=== PATIENT | male | born 1960 ===

== ENCOUNTER 2019-02-22 15:28 | Inpatient (IN) | payer MEDICAID ==
[~2019-02-22] VITALS: Ht 180.3 cm; Wt 98.1 kg
[2019-02-23] MEDS ORDERED: NICOTINE POLACRILEX 2 MG LOZENGE BC PRN (14:50)
[2019-02-23] MEDS ORDERED: magnesium hydroxide 30ml (MOM) UD suspension PO PRN (14:50)
[2019-02-23] MEDS ORDERED: loperamide 2mg capsule PO PRN (14:50)
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
[2019-02-23] MEDS ORDERED: FLU VACC QS 2019-20 (6 MOS UP) 60 MCG/0.5 ML VIAL IMVAC ONE (16:55)
[2019-02-23 18:28] VITALS: BP 132/72
[2019-02-23] MEDS ORDERED: LEVO125T PO (18:55)
[2019-02-23] MEDS ORDERED: CLON-527 PO (18:55)
[2019-02-23] MEDS ORDERED: CLON2TAB PO (18:55)
[2019-02-23] MEDS ORDERED: QUET300T2 PO (18:55)
[2019-02-23] MEDS ORDERED: MULT-16 PO (18:55)
[2019-02-23] MEDS ORDERED: ATOR10TA PO (18:55)
[2019-02-23] MEDS ORDERED: CALC-331 PO (18:55)
[2019-02-23] MEDS ORDERED: OXYB5TAB4 PO (18:55)
[2019-02-23] MEDS ORDERED: PROP10TA10 PO (18:55)
[2019-02-23] MEDS ORDERED: DIPH50CA37 (18:55)
[2019-02-23] MEDS ORDERED: OLAN15TA3 PO (18:55)
[2019-02-23] MEDS ORDERED: ASCO500C15 PO (18:55)
[2019-02-23] MEDS ORDERED: OXYB5TAB29 PO (18:55)
[2019-02-23] MEDS ORDERED: CARV3.122 PO (19:48)
[2019-02-23 20:00] VITALS: BP 140/84
[2019-02-23] MEDS ORDERED: LEVO150T8 PO (20:07)
[2019-02-23] MEDS ORDERED: quetiapine 100mg tablet PO ONE (21:00)
[2019-02-23] MEDS ORDERED: divalproex sod 250mg ER (24-hour) tablet PO ONE (21:35)
[2019-02-23] MEDS: atorvastatin 10mg tablet PO SCH (21:47)
[2019-02-23] MEDS ORDERED: diphenhydrAMINE 25mg capsule PO ONE (23:20)
[2019-02-23] MEDS ORDERED: haloperidol 5mg tablet PO ONE (23:20)
[2019-02-23] MEDS: LORazepam 1 MG tablet PO PRN (23:24)
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
[2019-02-24] MEDS ORDERED: quetiapine 100mg tablet PO ONE (02:05)
[2019-02-24 07:20] VITALS: BP 156/84
[2019-02-24] MEDS: ascorbic acid 500mg tablet PO SCH (08:17)
[2019-02-24] MEDS: oxybutynin 5mg tablet PO SCH ×2 (08:18→20:34)
[2019-02-24] MEDS: carVEDilol 3.125mg tablet PO SCH ×2 (08:18→20:34)
[2019-02-24] MEDS: multivitamins, therapeutics tablet PO SCH (08:18)
[2019-02-24] MEDS: calcium carbonate 500mg tablet PO SCH (08:19)
[2019-02-24] MEDS: nicotine 21mg patch - 24 hr TD SCH (08:21)
[2019-02-24] MEDS: LORazepam 1 MG tablet PO PRN ×2 (08:46→20:34)
[2019-02-24] MEDS: levoTHYROXINE 75mcg tablet PO SCH (13:25)
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
[2019-02-24 20:00] VITALS: BP 115/80
[2019-02-24] MEDS: atorvastatin 10mg tablet PO SCH (20:34)
[2019-02-24] MEDS: divalproex sod 250mg ER (24-hour) tablet PO SCH (21:03)
[2019-02-24] MEDS: quetiapine 100mg tablet PO SCH (21:05)
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
[2019-02-25 07:30] VITALS: BP 127/83
[2019-02-25] MEDS: levoTHYROXINE 75mcg tablet PO SCH (07:45)
[2019-02-25] MEDS: carVEDilol 3.125mg tablet PO SCH ×2 (07:46→20:31)
[2019-02-25] MEDS: ascorbic acid 500mg tablet PO SCH (07:46)
[2019-02-25] MEDS: calcium carbonate 500mg tablet PO SCH (07:46)
[2019-02-25] MEDS: multivitamins, therapeutics tablet PO SCH (07:46)
[2019-02-25] MEDS: quetiapine 100mg tablet PO SCH ×4 (07:47→20:32)
[2019-02-25] MEDS: oxybutynin 5mg tablet PO SCH ×2 (07:47→20:32)
[2019-02-25] MEDS: nicotine 21mg patch - 24 hr TD SCH (07:49)
[2019-02-25 08:00] VITALS: BP 127/83
[2019-02-25] MEDS: acetaminophen 325mg tablet PO PRN ×2 (11:53→16:47)
[2019-02-25] MEDS: LORazepam 1 MG tablet PO PRN (13:54)
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
[2019-02-25 20:00] VITALS: BP 125/77
[2019-02-25] MEDS: atorvastatin 10mg tablet PO SCH (20:31)
[2019-02-25] MEDS: divalproex sod 250mg ER (24-hour) tablet PO SCH (20:32)
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
[2019-02-26] MEDS: oxybutynin 5mg tablet PO SCH ×2 (07:22→21:03)
[2019-02-26] MEDS: calcium carbonate 500mg tablet PO SCH (07:22)
[2019-02-26] MEDS: levoTHYROXINE 75mcg tablet PO SCH (07:22)
[2019-02-26] MEDS: ascorbic acid 500mg tablet PO SCH (07:22)
[2019-02-26] MEDS: multivitamins, therapeutics tablet PO SCH (07:22)
[2019-02-26] MEDS: quetiapine 100mg tablet PO SCH ×4 (07:22→21:03)
[2019-02-26] MEDS: carVEDilol 3.125mg tablet PO SCH ×2 (07:22→21:03)
[2019-02-26] MEDS: nicotine 21mg patch - 24 hr TD SCH (07:30)
[2019-02-26 08:00] VITALS: BP 110/77
[2019-02-26] MEDS: mag hydrox/Alum hydrox/simeth 30ml oral suspension PO PRN (08:17)
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
[2019-02-26 20:00] VITALS: BP 119/77
[2019-02-26] MEDS: divalproex sod 250mg ER (24-hour) tablet PO SCH (21:03)
[2019-02-26] MEDS: atorvastatin 10mg tablet PO SCH (21:03)
[2019-02-27] MEDS: LORazepam 1 MG tablet PO PRN (02:29)
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
[2019-02-27] MEDS: acetaminophen 325mg tablet PO PRN (04:28)
[2019-02-27] MEDS: carVEDilol 3.125mg tablet PO SCH ×2 (07:58→19:57)
[2019-02-27] MEDS: oxybutynin 5mg tablet PO SCH ×2 (07:58→19:57)
[2019-02-27] MEDS: quetiapine 100mg tablet PO SCH ×4 (07:59→19:57)
[2019-02-27] MEDS: levoTHYROXINE 75mcg tablet PO SCH (07:59)
[2019-02-27] MEDS: ascorbic acid 500mg tablet PO SCH (07:59)
[2019-02-27] MEDS: multivitamins, therapeutics tablet PO SCH (07:59)
[2019-02-27] MEDS: nicotine 21mg patch - 24 hr TD SCH (08:00)
[2019-02-27] MEDS: calcium carbonate 500mg tablet PO SCH (08:00)
[2019-02-27 08:01] VITALS: BP 118/77
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
[2019-02-27 19:00] VITALS: BP 112/75
[2019-02-27] MEDS: divalproex sod 250mg ER (24-hour) tablet PO SCH (19:55)
[2019-02-27] MEDS: atorvastatin 10mg tablet PO SCH (19:57)
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
[2019-02-28] MEDS: acetaminophen 325mg tablet PO PRN (01:42)
[2019-02-28] MEDS: LORazepam 1 MG tablet PO PRN ×2 (03:02→12:50)
--- NOTE | 2019-02-28 03:04 | NUR ---
Nursing Note: Administered PRN Ativan, per pt. in room talking loudly/agitatedly at times and laughing to himself. Will continue to monitor.
[2019-02-28] MEDS: carVEDilol 3.125mg tablet PO SCH ×2 (07:33→20:09)
[2019-02-28] MEDS: quetiapine 100mg tablet PO SCH ×4 (07:33→20:08)
[2019-02-28] MEDS: multivitamins, therapeutics tablet PO SCH (07:34)
[2019-02-28] MEDS: oxybutynin 5mg tablet PO SCH ×2 (07:34→20:07)
[2019-02-28] MEDS: ascorbic acid 500mg tablet PO SCH (07:34)
[2019-02-28] MEDS: levoTHYROXINE 75mcg tablet PO SCH (07:35)
[2019-02-28] MEDS: calcium carbonate 500mg tablet PO SCH (07:35)
[2019-02-28] MEDS: nicotine 21mg patch - 24 hr TD SCH (07:52)
[2019-02-28 08:58] VITALS: BP 107/78
--- NOTE | 2019-02-28 09:37 | NUR ---
Initial: Pt admit w/ psychosis PO 75-100% avg meals meeting needs. LBM 02/26. No nutrition concerns at this time. Will continue to monitor. Rec: 1. continue regular diet 2. routine bowel care 3. wt per rx Addendum: 02/28/19 at [address] Amended: Links added.
--- NOTE | 2019-02-28 10:16 | NUR ---
DISCHARGE PLANNING: spoke with Nikky at [facility], they will find out if client has housing and will call jose back
[2019-02-28] MEDS ORDERED: LORazepam 1 MG tablet PO ONE (12:55)
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
--- NOTE | 2019-02-28 17:45 | NUR ---
Nursing Progress Note: Legal hold: 5150 Client on involuntary status for DTS Report received from Karen Lloyd RN with use of SBAR Why are they here: At 1430 pt admitted to [facility] on 5150 for DTS. Pt admitted for Depression NOS to room 326A. Pt states she has been stockpiling her medications to overdose. Pt also plans to pull out her dialysis catheter out. Pt stopped taking her medications a week ago stopped eating or sleeping and stopped dialysis. Pt has history of Bipolar, Schizophrenia, personality disorder and PTSD. Pt complains all of her family is diseased but has good relationship with her therapist Cornelia Albert. Assessment What has happened this shift: Pt. asleep at start of shift. Pt. up for medications and breakfast. Pt. ate all meals in community room. 1:1 done at bedside. Pt. denies SI/HI, A/V H. Pt. c/o of 11/03 back pain and given Wainwright 10/325 with good effect. Pt. reports she is a good mood and is hoping to be discharged on Thursday. Pt. attends groups and is seen socializing appropriately with other patients and staff. S/I, H/I: Denies A/VH: Denies Sleep: Napped x2 on day shift. ADL's: Independent Were Meds taken: Yes Any med S/E: None reported nor observed Mental Status Exam Appearance: Appropriate attire for the unit Eye contact: Direct Behavior: Socializing with peers, pleasant, and cooperative with most care Speech: Clear, audible, steady pace Mood: mostly pleasant but irritable at times Affect: Congruent with mood Thought process: linear Thought Content: Concerned about her cats at home. Concerned about pain medication. Cognition: A/Ox4 Insight: Poor Judgment: Poor Interventions PRN's used: Wainwright 10/325 x3 Therapeutic interventions: 1:1 therapeutic assessment, maintained safe therapeutic milieu, provided active listening with positive reinforcement, provided medication administration/education/monitoring as needed; Q15 safety checks. Restraints/seclusion/emergency medication: N/A Justification of Continued Inpatient Treatment: Continued therapeutic support and medication management needed to provide stabilization, prevent decompensation, and improve coping mechanisms decreasing risk to patient and re-admittance.
[2019-02-28 20:04] VITALS: BP 152/80
[2019-02-28] MEDS: divalproex sod 250mg ER (24-hour) tablet PO SCH (20:07)
[2019-02-28] MEDS: atorvastatin 10mg tablet PO SCH (20:07)
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
[2019-03-01] MEDS: quetiapine 100mg tablet PO SCH ×4 (07:32→20:20)
[2019-03-01] MEDS: ascorbic acid 500mg tablet PO SCH (07:32)
[2019-03-01] MEDS: levoTHYROXINE 75mcg tablet PO SCH (07:33)
[2019-03-01] MEDS: multivitamins, therapeutics tablet PO SCH (07:33)
[2019-03-01] MEDS: oxybutynin 5mg tablet PO SCH ×2 (07:33→20:20)
[2019-03-01] MEDS: carVEDilol 3.125mg tablet PO SCH ×2 (07:33→20:20)
[2019-03-01] MEDS: calcium carbonate 500mg tablet PO SCH (07:33)
[2019-03-01] MEDS: LORazepam 1 MG tablet PO PRN (07:33)
[2019-03-01 08:00] VITALS: BP 153/98
[2019-03-01] MEDS: nicotine 21mg patch - 24 hr TD SCH (08:00)
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
[2019-03-01 20:00] VITALS: BP 108/74
[2019-03-01] MEDS: atorvastatin 10mg tablet PO SCH (20:20)
[2019-03-01] MEDS: divalproex sod 250mg ER (24-hour) tablet PO SCH (20:21)
[2019-03-01] MEDS: acetaminophen 325mg tablet PO PRN (20:37)
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
[2019-03-02 07:30] VITALS: BP 122/87
[2019-03-02] MEDS: multivitamins, therapeutics tablet PO SCH (07:57)
[2019-03-02] MEDS: oxybutynin 5mg tablet PO SCH ×2 (07:57→20:33)
[2019-03-02] MEDS: ascorbic acid 500mg tablet PO SCH (07:58)
[2019-03-02] MEDS: carVEDilol 3.125mg tablet PO SCH ×2 (07:58→20:34)
[2019-03-02] MEDS: calcium carbonate 500mg tablet PO SCH (07:58)
[2019-03-02] MEDS: quetiapine 100mg tablet PO SCH ×4 (07:58→20:32)
[2019-03-02] MEDS: levoTHYROXINE 75mcg tablet PO SCH (07:59)
--- NOTE | 2019-03-02 10:52 | NUR ---
Discharge Planning Spoke with Roney Tamez (ph# [phone]), Jeny [facility]ler Public Guardian, regarding Ct's discharge plan. He reported Ct can return to his [facility] in [place]. He reported Jeny Sadler will transport and that he will follow up with [facility]. Main # for PG office is [phone]. JOHN Richard
[2019-03-02] MEDS: LORazepam 0.5 MG tablet PO SCH ×2 (12:49→20:33)
[2019-03-02] MEDS: acetaminophen 325mg tablet PO PRN (16:35)
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
[2019-03-02 20:00] VITALS: BP 114/83
[2019-03-02] MEDS: atorvastatin 10mg tablet PO SCH (20:32)
[2019-03-02] MEDS: divalproex sod 250mg ER (24-hour) tablet PO SCH (20:33)
[2019-03-02] MEDS ORDERED: diphenhydrAMINE 25mg capsule PO ONE (23:15)
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
[2019-03-03] MEDS: multivitamins, therapeutics tablet PO SCH (08:31)
[2019-03-03] MEDS: LORazepam 0.5 MG tablet PO SCH ×3 (08:31→21:14)
[2019-03-03] MEDS: levoTHYROXINE 75mcg tablet PO SCH (08:31)
[2019-03-03] MEDS: LORazepam 1 MG tablet PO PRN (08:31)
[2019-03-03] MEDS: ascorbic acid 500mg tablet PO SCH (08:31)
[2019-03-03] MEDS: oxybutynin 5mg tablet PO SCH ×2 (08:31→21:14)
[2019-03-03] MEDS: calcium carbonate 500mg tablet PO SCH (08:31)
[2019-03-03] MEDS: carVEDilol 3.125mg tablet PO SCH ×2 (08:31→21:14)
[2019-03-03] MEDS: quetiapine 100mg tablet PO SCH ×4 (08:31→21:15)
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
[2019-03-03 20:00] VITALS: BP 108/69
[2019-03-03 21:00] VITALS: BP 140/82
[2019-03-03] MEDS: divalproex sod 250mg ER (24-hour) tablet PO SCH (21:13)
[2019-03-03] MEDS: atorvastatin 10mg tablet PO SCH (21:15)
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
[2019-03-04] MEDS: acetaminophen 325mg tablet PO PRN (05:29)
[2019-03-04 08:00] VITALS: BP 124/82
[2019-03-04] MEDS: multivitamins, therapeutics tablet PO SCH (08:33)
[2019-03-04] MEDS: carVEDilol 3.125mg tablet PO SCH ×2 (08:33→21:21)
[2019-03-04] MEDS: quetiapine 100mg tablet PO SCH ×4 (08:33→21:22)
[2019-03-04] MEDS: LORazepam 0.5 MG tablet PO SCH ×3 (08:33→21:21)
[2019-03-04] MEDS: ascorbic acid 500mg tablet PO SCH (08:34)
[2019-03-04] MEDS: levoTHYROXINE 75mcg tablet PO SCH (08:34)
[2019-03-04] MEDS: oxybutynin 5mg tablet PO SCH ×2 (08:34→21:21)
[2019-03-04] MEDS: calcium carbonate 500mg tablet PO SCH (08:34)
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
[2019-03-04 20:00] VITALS: BP 120/79
[2019-03-04] MEDS: atorvastatin 10mg tablet PO SCH (21:21)
[2019-03-04] MEDS: divalproex sod 250mg ER (24-hour) tablet PO SCH (21:22)
[2019-03-04] MEDS: diphenhydrAMINE 25mg capsule PO PRN (23:30)
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
[2019-03-05] MEDS: LORazepam 1 MG tablet PO PRN ×2 (02:29→18:48)
[2019-03-05] MEDS: multivitamins, therapeutics tablet PO SCH (07:54)
[2019-03-05] MEDS: carVEDilol 3.125mg tablet PO SCH ×2 (07:54→20:38)
[2019-03-05] MEDS: LORazepam 0.5 MG tablet PO SCH ×3 (07:54→21:10)
[2019-03-05] MEDS: calcium carbonate 500mg tablet PO SCH (07:55)
[2019-03-05] MEDS: oxybutynin 5mg tablet PO SCH ×2 (07:55→20:38)
[2019-03-05] MEDS: quetiapine 100mg tablet PO SCH ×3 (07:55→21:07)
[2019-03-05] MEDS: levoTHYROXINE 75mcg tablet PO SCH (07:55)
[2019-03-05] MEDS: ascorbic acid 500mg tablet PO SCH (07:55)
[2019-03-05 08:00] VITALS: BP 132/82
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
[2019-03-05] MEDS: QUEtiapine 25mg tablet PO SCH (17:29)
[2019-03-05 19:34] VITALS: BP 142/78
[2019-03-05] MEDS: divalproex sod 250mg ER (24-hour) tablet PO SCH (20:38)
[2019-03-05] MEDS: atorvastatin 10mg tablet PO SCH (20:38)
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
[2019-03-06] MEDS: diphenhydrAMINE 25mg capsule PO PRN ×2 (03:34→19:54)
[2019-03-06 07:20] VITALS: BP 117/70
[2019-03-06] MEDS: multivitamins, therapeutics tablet PO SCH (08:05)
[2019-03-06] MEDS: ascorbic acid 500mg tablet PO SCH (08:05)
[2019-03-06] MEDS: levoTHYROXINE 75mcg tablet PO SCH (08:06)
[2019-03-06] MEDS: calcium carbonate 500mg tablet PO SCH (08:06)
[2019-03-06] MEDS: carVEDilol 3.125mg tablet PO SCH ×2 (08:07→21:00)
[2019-03-06] MEDS: oxybutynin 5mg tablet PO SCH ×2 (08:07→21:00)
[2019-03-06] MEDS: QUEtiapine 25mg tablet PO SCH ×3 (08:08→17:20)
[2019-03-06] MEDS: divalproex sod 250mg ER (24-hour) tablet PO SCH ×2 (08:08→20:59)
[2019-03-06] MEDS: LORazepam 0.5 MG tablet PO SCH ×3 (08:08→21:00)
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
[2019-03-06 19:35] VITALS: BP 127/84
[2019-03-06] MEDS: quetiapine 100mg tablet PO SCH (20:59)
[2019-03-06] MEDS: atorvastatin 10mg tablet PO SCH (21:00)
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
[2019-03-07 07:42] VITALS: BP 117/67
[2019-03-07] MEDS: levoTHYROXINE 75mcg tablet PO SCH (08:03)
[2019-03-07] MEDS: oxybutynin 5mg tablet PO SCH ×2 (08:03→20:56)
[2019-03-07] MEDS: ascorbic acid 500mg tablet PO SCH (08:03)
[2019-03-07] MEDS: calcium carbonate 500mg tablet PO SCH (08:03)
[2019-03-07] MEDS: QUEtiapine 25mg tablet PO SCH ×2 (08:03→12:57)
[2019-03-07] MEDS: carVEDilol 3.125mg tablet PO SCH ×2 (08:04→20:56)
[2019-03-07] MEDS: multivitamins, therapeutics tablet PO SCH (08:04)
[2019-03-07] MEDS: LORazepam 0.5 MG tablet PO SCH ×3 (08:04→20:57)
[2019-03-07] MEDS: divalproex sod 250mg ER (24-hour) tablet PO SCH (08:04)
[2019-03-07] MEDS: clotrimazole topical cream 15gm tube TP SCH ×2 (10:10→20:00)
[2019-03-07] MEDS: LORazepam 1 MG tablet PO PRN (10:16)
[2019-03-07] MEDS: acetaminophen 325mg tablet PO PRN (14:11)
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
[2019-03-07] MEDS ORDERED: quetiapine 100mg tablet PO ONE (18:05)
[2019-03-07] MEDS: divalproex sodium 250mg tablet PO SCH (18:15)
[2019-03-07 20:00] VITALS: BP 109/64
[2019-03-07] MEDS: atorvastatin 10mg tablet PO SCH (20:56)
[2019-03-07] MEDS: quetiapine 100mg tablet PO SCH (20:56)
[2019-03-07] MEDS: diphenhydrAMINE 25mg capsule PO PRN (20:59)
--- NOTE | 2019-03-07 22:46 | NUR ---
Patient is sitting in the hallway outside the Recreation room sitting on a chair. Patient exhibits anxiety. He expresses anger and irritation. Patient declines Ativan, he states in a loud voice "I'm trying to meditate, quit bothering me, I don't want any medications!"
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
[2019-03-08 07:24] VITALS: BP 135/86
[2019-03-08] MEDS: carVEDilol 3.125mg tablet PO SCH ×2 (07:30→20:44)
[2019-03-08] MEDS: multivitamins, therapeutics tablet PO SCH (07:30)
[2019-03-08] MEDS: oxybutynin 5mg tablet PO SCH ×2 (07:30→20:45)
[2019-03-08] MEDS: calcium carbonate 500mg tablet PO SCH (07:30)
[2019-03-08] MEDS: QUEtiapine 25mg tablet PO SCH ×3 (07:31→16:42)
[2019-03-08] MEDS: ascorbic acid 500mg tablet PO SCH (07:31)
[2019-03-08] MEDS: LORazepam 0.5 MG tablet PO SCH ×3 (07:31→20:46)
[2019-03-08] MEDS: levoTHYROXINE 75mcg tablet PO SCH (07:32)
[2019-03-08] MEDS: clotrimazole topical cream 15gm tube TP SCH ×2 (07:35→20:47)
[2019-03-08] MEDS: divalproex sodium 250mg tablet PO SCH ×3 (08:14→16:42)
[2019-03-08] MEDS: LORazepam 1 MG tablet PO PRN (09:06)
--- NOTE | 2019-03-08 11:27 | NUR ---
Initial: PO 75-100% average meals meeting needs. LBM 03/07. No nutrition concerns at this time. Will continue to monitor. Rec: 1. continue regular diet 2. bowel care as needed 3. weekly weights Addendum: 03/08/19 at [address] Amended: Links added.
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
[2019-03-08] MEDS: diphenhydrAMINE 25mg capsule PO PRN (19:05)
[2019-03-08 19:10] VITALS: BP 128/83
[2019-03-08] MEDS ORDERED: lithium carbonate 150mg capsule PO SCH (20:36)
[2019-03-08] MEDS: quetiapine 100mg tablet PO SCH (20:44)
[2019-03-08] MEDS: atorvastatin 10mg tablet PO SCH (20:45)
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
[2019-03-09] MEDS: acetaminophen 325mg tablet PO PRN (04:34)
[2019-03-09 07:54] VITALS: BP 125/86
[2019-03-09] MEDS: oxybutynin 5mg tablet PO SCH ×2 (08:38→20:55)
[2019-03-09] MEDS: levoTHYROXINE 75mcg tablet PO SCH (08:39)
[2019-03-09] MEDS: carVEDilol 3.125mg tablet PO SCH ×2 (08:39→20:55)
[2019-03-09] MEDS: multivitamins, therapeutics tablet PO SCH (08:39)
[2019-03-09] MEDS: ascorbic acid 500mg tablet PO SCH (08:39)
[2019-03-09] MEDS: calcium carbonate 500mg tablet PO SCH (08:39)
[2019-03-09] MEDS: LORazepam 0.5 MG tablet PO SCH ×3 (08:40→20:55)
[2019-03-09] MEDS: lithium carbonate 150mg capsule PO SCH ×2 (08:40→20:56)
[2019-03-09] MEDS: QUEtiapine 25mg tablet PO SCH ×3 (08:41→17:55)
[2019-03-09] MEDS: clotrimazole topical cream 15gm tube TP SCH ×2 (08:41→20:56)
[2019-03-09] MEDS: divalproex sodium 250mg tablet PO SCH ×3 (08:42→17:55)
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
[2019-03-09 20:00] VITALS: BP 127/81
[2019-03-09] MEDS: quetiapine 100mg tablet PO SCH (20:54)
[2019-03-09] MEDS: atorvastatin 10mg tablet PO SCH (20:54)
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
[2019-03-10] MEDS: levoTHYROXINE 75mcg tablet PO SCH (06:43)
[2019-03-10 08:00] VITALS: BP 129/80
[2019-03-10] MEDS: clotrimazole topical cream 15gm tube TP SCH ×2 (08:00→20:30)
[2019-03-10] MEDS: calcium carbonate 500mg tablet PO SCH (08:27)
[2019-03-10] MEDS: multivitamins, therapeutics tablet PO SCH (08:27)
[2019-03-10] MEDS: ascorbic acid 500mg tablet PO SCH (08:27)
[2019-03-10] MEDS: oxybutynin 5mg tablet PO SCH ×2 (08:27→20:30)
[2019-03-10] MEDS: LORazepam 0.5 MG tablet PO SCH ×3 (08:27→20:29)
[2019-03-10] MEDS: carVEDilol 3.125mg tablet PO SCH ×2 (08:27→20:30)
[2019-03-10] MEDS: QUEtiapine 25mg tablet PO SCH (08:28)
[2019-03-10] MEDS: divalproex sodium 250mg tablet PO SCH ×3 (08:29→17:03)
[2019-03-10] MEDS: lithium carbonate 150mg capsule PO SCH ×2 (12:45→20:29)
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
[2019-03-10] MEDS: quetiapine 100mg tablet PO SCH ×2 (17:03→20:30)
[2019-03-10 20:00] VITALS: BP 108/74
[2019-03-10] MEDS: atorvastatin 10mg tablet PO SCH (20:29)
[2019-03-10] MEDS: naproxen sodium 220mg tablet PO SCH (20:29)
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
[2019-03-11] MEDS: levoTHYROXINE 75mcg tablet PO SCH (07:03)
[2019-03-11 07:39] VITALS: BP 128/88
[2019-03-11] MEDS: clotrimazole topical cream 15gm tube TP SCH ×2 (08:00→20:58)
[2019-03-11] MEDS: ascorbic acid 500mg tablet PO SCH (08:07)
[2019-03-11] MEDS: naproxen sodium 220mg tablet PO SCH ×2 (08:07→20:56)
[2019-03-11] MEDS: multivitamins, therapeutics tablet PO SCH (08:07)
[2019-03-11] MEDS: oxybutynin 5mg tablet PO SCH ×2 (08:07→20:57)
[2019-03-11] MEDS: carVEDilol 3.125mg tablet PO SCH ×2 (08:08→20:56)
[2019-03-11] MEDS: calcium carbonate 500mg tablet PO SCH (08:08)
[2019-03-11] MEDS: quetiapine 100mg tablet PO SCH ×4 (08:08→20:57)
[2019-03-11] MEDS: LORazepam 0.5 MG tablet PO SCH ×3 (08:08→20:57)
[2019-03-11] MEDS: divalproex sodium 250mg tablet PO SCH ×3 (08:08→16:33)
[2019-03-11] MEDS: lithium carbonate 150mg capsule PO SCH ×3 (08:08→20:57)
[2019-03-11 08:14] LABS: ALANINE AMINOTRANSFERASE 36 U/L (12-78); ALBUMIN 3.4 G/DL (3.4-5.0); ALKALINE PHOSPHATASE 80 IU/L (46-116); ANION GAP 6 (8-16); ASPARTATE AMINO TRANSFERASE 22 U/L (10-37); BILIRUBIN,TOTAL 0.3 MG/DL (0.1-1.0); BLOOD UREA NITROGEN 25 MG/DL (7-18); BUN/CREATININE RATIO 27.5 (5.4-32.0); CALCIUM 8.8 MG/DL (8.5-10.1); CHLORIDE 105 MMOL/L (99-107); CREATININE 0.91 MG/DL (0.60-1.10); GLUCOSE 110 MG/DL (70-104); POTASSIUM 4.5 MMOL/L (3.5-5.1); SODIUM 141 MMOL/L (135-145); TOTAL CARBON DIOXIDE 30.1 MMOL/L (24-32); TOTAL PROTEIN 6.8 G/DL (6.4-8.2); eGFR 86 ML/MIN
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
[2019-03-11 19:07] VITALS: BP 135/85
[2019-03-11] MEDS: atorvastatin 10mg tablet PO SCH (20:57)
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
[2019-03-12 08:00] VITALS: BP 122/100
[2019-03-12] MEDS: naproxen sodium 220mg tablet PO SCH ×2 (08:04→20:36)
[2019-03-12] MEDS: quetiapine 100mg tablet PO SCH ×4 (08:05→20:37)
[2019-03-12] MEDS: levoTHYROXINE 75mcg tablet PO SCH (08:05)
[2019-03-12] MEDS: multivitamins, therapeutics tablet PO SCH (08:05)
[2019-03-12] MEDS: oxybutynin 5mg tablet PO SCH ×2 (08:05→20:36)
[2019-03-12] MEDS: calcium carbonate 500mg tablet PO SCH (08:06)
[2019-03-12] MEDS: lithium carbonate 150mg capsule PO SCH ×2 (08:06→13:04)
[2019-03-12] MEDS: LORazepam 0.5 MG tablet PO SCH ×3 (08:06→20:37)
[2019-03-12] MEDS: divalproex sodium 250mg tablet PO SCH ×3 (08:06→17:22)
[2019-03-12] MEDS: carVEDilol 3.125mg tablet PO SCH ×2 (08:07→20:36)
[2019-03-12] MEDS: ascorbic acid 500mg tablet PO SCH (08:09)
[2019-03-12] MEDS: clotrimazole topical cream 15gm tube TP SCH ×2 (08:10→20:36)
[2019-03-12] MEDS ORDERED: PALIPERIDONE 3 MG TAB.ER.24 PO ONE (10:45)
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
[2019-03-12 19:00] VITALS: BP 130/72
[2019-03-12] MEDS: diphenhydrAMINE 25mg capsule PO PRN (20:36)
[2019-03-12] MEDS: atorvastatin 10mg tablet PO SCH (20:37)
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
[2019-03-13] MEDS: levoTHYROXINE 75mcg tablet PO SCH (07:07)
[2019-03-13] MEDS: naproxen sodium 220mg tablet PO SCH ×2 (07:56→20:43)
[2019-03-13] MEDS: carVEDilol 3.125mg tablet PO SCH ×2 (07:56→20:44)
[2019-03-13] MEDS: calcium carbonate 500mg tablet PO SCH (07:56)
[2019-03-13] MEDS: lithium carbonate 150mg capsule PO SCH ×2 (07:56→13:09)
[2019-03-13] MEDS: oxybutynin 5mg tablet PO SCH ×2 (07:56→20:44)
[2019-03-13] MEDS: PALIPERIDONE 3 MG TAB.ER.24 PO SCH (07:57)
[2019-03-13] MEDS: clotrimazole topical cream 15gm tube TP SCH ×2 (07:57→20:48)
[2019-03-13] MEDS: divalproex sodium 250mg tablet PO SCH ×3 (07:57→17:12)
[2019-03-13] MEDS: quetiapine 100mg tablet PO SCH ×4 (07:57→20:44)
[2019-03-13] MEDS: multivitamins, therapeutics tablet PO SCH (07:57)
[2019-03-13] MEDS: ascorbic acid 500mg tablet PO SCH (07:57)
[2019-03-13] MEDS: LORazepam 0.5 MG tablet PO SCH ×3 (07:57→20:48)
[2019-03-13 08:00] VITALS: BP 139/83
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
[2019-03-13 19:57] VITALS: BP 128/81
[2019-03-13] MEDS: atorvastatin 10mg tablet PO SCH (20:43)
[2019-03-13] MEDS: LORazepam 1 MG tablet PO PRN (20:44)
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
[2019-03-14] MEDS: levoTHYROXINE 75mcg tablet PO SCH (07:15)
[2019-03-14 07:46] VITALS: BP 147/77
[2019-03-14] MEDS: lithium carbonate 150mg capsule PO SCH ×2 (08:14→13:41)
[2019-03-14] MEDS: PALIPERIDONE 3 MG TAB.ER.24 PO SCH (08:14)
[2019-03-14] MEDS: multivitamins, therapeutics tablet PO SCH (08:14)
[2019-03-14] MEDS: naproxen sodium 220mg tablet PO SCH ×2 (08:14→20:47)
[2019-03-14] MEDS: calcium carbonate 500mg tablet PO SCH (08:14)
[2019-03-14] MEDS: divalproex sodium 250mg tablet PO SCH ×3 (08:15→17:43)
[2019-03-14] MEDS: ascorbic acid 500mg tablet PO SCH (08:15)
[2019-03-14] MEDS: quetiapine 100mg tablet PO SCH ×4 (08:15→20:46)
[2019-03-14] MEDS: oxybutynin 5mg tablet PO SCH ×2 (08:15→20:47)
[2019-03-14] MEDS: LORazepam 0.5 MG tablet PO SCH ×3 (08:15→20:49)
[2019-03-14] MEDS: carVEDilol 3.125mg tablet PO SCH ×2 (08:15→20:47)
[2019-03-14] MEDS: clotrimazole topical cream 15gm tube TP SCH ×2 (08:25→20:00)
--- NOTE | 2019-03-14 09:50 | NUR ---
reassessment: PO 100% average meals meeting needs. LBM 03/12. No nutrition concerns at this time. Will continue to monitor. Rec: 1. continue regular diet 2. bowel care as needed 3. weekly weights Addendum: 03/14/19 at [address] Amended: Links added.
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
--- NOTE | 2019-03-14 13:54 | NUR ---
DISCHARGE PLANNING Me's case maker, Agapito Sexton (ph# [phone]), with [facility], called to report that Ct is unable to return to his fci and there is not another home for him to go to at this time. He reported he will follow up with JOHN Arzola
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
[2019-03-14 20:23] VITALS: BP 129/86
[2019-03-14] MEDS: atorvastatin 10mg tablet PO SCH (20:47)
[2019-03-14] MEDS: diphenhydrAMINE 25mg capsule PO PRN (21:51)
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
[2019-03-15] MEDS: levoTHYROXINE 75mcg tablet PO SCH (07:17)
[2019-03-15] MEDS: clotrimazole topical cream 15gm tube TP SCH ×2 (08:00→20:00)
[2019-03-15] MEDS: multivitamins, therapeutics tablet PO SCH (08:01)
[2019-03-15] MEDS: lithium carbonate 150mg capsule PO SCH ×3 (08:02→20:20)
[2019-03-15] MEDS: calcium carbonate 500mg tablet PO SCH (08:02)
[2019-03-15] MEDS: quetiapine 100mg tablet PO SCH ×4 (08:02→20:20)
[2019-03-15] MEDS: naproxen sodium 220mg tablet PO SCH ×2 (08:02→20:19)
[2019-03-15] MEDS: oxybutynin 5mg tablet PO SCH ×2 (08:02→20:21)
[2019-03-15] MEDS: ascorbic acid 500mg tablet PO SCH (08:02)
[2019-03-15] MEDS: carVEDilol 3.125mg tablet PO SCH ×2 (08:02→20:20)
[2019-03-15] MEDS: PALIPERIDONE 3 MG TAB.ER.24 PO SCH (08:02)
[2019-03-15] MEDS: divalproex sodium 250mg tablet PO SCH ×3 (08:03→17:57)
[2019-03-15] MEDS: LORazepam 0.5 MG tablet PO SCH ×3 (08:03→20:20)
[2019-03-15 08:29] VITALS: BP 102/63
--- NOTE | 2019-03-15 12:03 | NUR ---
DISCHARGE PLANNING Brad Alaniz (ph# [phone]) called to discuss D/C plan. 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 Agapito requested Ct be discharged early in the week in case there are any problems. Plan to D/C on Sunday 03/11 at 11 am. Ct will be transported to [facility] and will meet with Agapito who will assist Ct with going to the half-way. Agapito requested Ct's medications get called in to [facility] (ph# [phone]) and they will deliver to [facility] and he will go to half-way with med box. JOHN Richard
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
[2019-03-15] MEDS: atorvastatin 10mg tablet PO SCH (20:21)
[2019-03-15 20:34] VITALS: BP 159/92
[2019-03-16] MEDS: diphenhydrAMINE 25mg capsule PO PRN (02:34)
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
[2019-03-16] MEDS: levoTHYROXINE 75mcg tablet PO SCH (07:06)
[2019-03-16 08:00] VITALS: BP 145/84
[2019-03-16] MEDS: LORazepam 0.5 MG tablet PO SCH ×3 (08:01→20:47)
[2019-03-16] MEDS: quetiapine 100mg tablet PO SCH ×4 (08:01→20:47)
[2019-03-16] MEDS: oxybutynin 5mg tablet PO SCH ×2 (08:01→20:48)
[2019-03-16] MEDS: divalproex sodium 250mg tablet PO SCH ×3 (08:01→17:02)
[2019-03-16] MEDS: PALIPERIDONE 3 MG TAB.ER.24 PO SCH (08:01)
[2019-03-16] MEDS: ascorbic acid 500mg tablet PO SCH (08:01)
[2019-03-16] MEDS: naproxen sodium 220mg tablet PO SCH ×2 (08:02→20:48)
[2019-03-16] MEDS: multivitamins, therapeutics tablet PO SCH (08:02)
[2019-03-16] MEDS: calcium carbonate 500mg tablet PO SCH (08:02)
[2019-03-16] MEDS: lithium carbonate 150mg capsule PO SCH ×3 (08:02→20:47)
[2019-03-16] MEDS: clotrimazole topical cream 15gm tube TP SCH ×2 (08:03→20:54)
[2019-03-16] MEDS: carVEDilol 3.125mg tablet PO SCH ×2 (08:03→20:48)
[2019-03-16] MEDS: acetaminophen 325mg tablet PO PRN (13:02)
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
[2019-03-16 19:39] VITALS: BP 142/52
[2019-03-16] MEDS: atorvastatin 10mg tablet PO SCH (20:47)
[2019-03-16] MEDS: diphenhydrAMINE 25mg capsule PO SCH (20:47)
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
[2019-03-17] MEDS: levoTHYROXINE 75mcg tablet PO SCH (07:06)
[2019-03-17 07:43] VITALS: BP 115/81
[2019-03-17] MEDS: clotrimazole topical cream 15gm tube TP SCH ×2 (08:00→21:53)
[2019-03-17] MEDS: LORazepam 0.5 MG tablet PO SCH ×3 (08:04→21:48)
[2019-03-17] MEDS: PALIPERIDONE 3 MG TAB.ER.24 PO SCH (08:05)
[2019-03-17] MEDS: calcium carbonate 500mg tablet PO SCH (08:05)
[2019-03-17] MEDS: ascorbic acid 500mg tablet PO SCH (08:05)
[2019-03-17] MEDS: lithium carbonate 150mg capsule PO SCH ×3 (08:06→21:48)
[2019-03-17] MEDS: divalproex sodium 250mg tablet PO SCH ×3 (08:06→17:33)
[2019-03-17] MEDS: multivitamins, therapeutics tablet PO SCH (08:06)
[2019-03-17] MEDS: carVEDilol 3.125mg tablet PO SCH ×2 (08:06→21:48)
[2019-03-17] MEDS: naproxen sodium 220mg tablet PO SCH ×2 (08:07→21:49)
[2019-03-17] MEDS: quetiapine 100mg tablet PO SCH ×4 (08:08→21:48)
[2019-03-17] MEDS: oxybutynin 5mg tablet PO SCH ×2 (08:08→21:49)
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
[2019-03-17 19:57] VITALS: BP 122/76
[2019-03-17] MEDS: atorvastatin 10mg tablet PO SCH (21:48)
[2019-03-17] MEDS: diphenhydrAMINE 25mg capsule PO SCH (21:48)
[2019-03-18] MEDS: diphenhydrAMINE 25mg capsule PO PRN (00:43)
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
[2019-03-18] MEDS: levoTHYROXINE 75mcg tablet PO SCH (06:26)
[2019-03-18] MEDS: ascorbic acid 500mg tablet PO SCH (07:51)
[2019-03-18] MEDS: lithium carbonate 150mg capsule PO SCH ×3 (07:51→21:37)
[2019-03-18] MEDS: PALIPERIDONE 3 MG TAB.ER.24 PO SCH (07:51)
[2019-03-18] MEDS: carVEDilol 3.125mg tablet PO SCH ×2 (07:51→21:37)
[2019-03-18] MEDS: calcium carbonate 500mg tablet PO SCH (07:51)
[2019-03-18] MEDS: quetiapine 100mg tablet PO SCH ×4 (07:51→21:36)
[2019-03-18] MEDS: naproxen sodium 220mg tablet PO SCH ×2 (07:52→21:35)
[2019-03-18] MEDS: oxybutynin 5mg tablet PO SCH ×2 (07:52→21:36)
[2019-03-18] MEDS: multivitamins, therapeutics tablet PO SCH (07:52)
[2019-03-18] MEDS: LORazepam 0.5 MG tablet PO SCH ×3 (07:52→21:36)
[2019-03-18 08:00] VITALS: BP 146/85
[2019-03-18] MEDS: clotrimazole topical cream 15gm tube TP SCH ×2 (08:10→21:38)
[2019-03-18] MEDS: divalproex sodium 250mg tablet PO SCH ×2 (08:51→21:39)
--- NOTE | 2019-03-18 14:45 | NUR ---
DISCHARGE PLANNING Called Brad Alaniz (ph# [phone]) twice today to discuss D/C plan for Thursday. Left messages both times requesting a call back. JOHN Richard
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
[2019-03-18 19:00] VITALS: BP 126/83
[2019-03-18] MEDS: diphenhydrAMINE 25mg capsule PO SCH (21:36)
[2019-03-18] MEDS: atorvastatin 10mg tablet PO SCH (21:37)
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
[2019-03-19] MEDS: diphenhydrAMINE 25mg capsule PO PRN (00:57)
[2019-03-19] MEDS: levoTHYROXINE 75mcg tablet PO SCH (06:40)
[2019-03-19 07:00] VITALS: BP 134/89
[2019-03-19] MEDS: oxybutynin 5mg tablet PO SCH ×2 (07:26→20:37)
[2019-03-19] MEDS: ascorbic acid 500mg tablet PO SCH (07:26)
[2019-03-19] MEDS: carVEDilol 3.125mg tablet PO SCH ×2 (07:26→20:38)
[2019-03-19] MEDS: PALIPERIDONE 3 MG TAB.ER.24 PO SCH (07:26)
[2019-03-19] MEDS: LORazepam 0.5 MG tablet PO SCH ×3 (07:26→20:38)
[2019-03-19] MEDS: lithium carbonate 150mg capsule PO SCH ×3 (07:27→20:36)
[2019-03-19] MEDS: divalproex sodium 250mg tablet PO SCH (07:27)
[2019-03-19] MEDS: naproxen sodium 220mg tablet PO SCH ×2 (07:27→20:39)
[2019-03-19] MEDS: calcium carbonate 500mg tablet PO SCH (07:27)
[2019-03-19] MEDS: multivitamins, therapeutics tablet PO SCH (07:27)
[2019-03-19] MEDS: quetiapine 100mg tablet PO SCH ×4 (07:27→20:37)
[2019-03-19] MEDS: clotrimazole topical cream 15gm tube TP SCH ×2 (08:05→20:00)
[2019-03-19 08:43] VITALS: BP 134/89
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
[2019-03-19] MEDS: diphenhydrAMINE 25mg capsule PO SCH (20:38)
[2019-03-19] MEDS: atorvastatin 10mg tablet PO SCH (20:39)
[2019-03-19 21:00] VITALS: BP 141/108
[2019-03-19] MEDS ORDERED: divalproex sodium 250mg tablet PO SCH (21:00)
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
[2019-03-20] MEDS: acetaminophen 325mg tablet PO PRN (00:40)
[2019-03-20 07:00] VITALS: BP 139/84
[2019-03-20] MEDS: levoTHYROXINE 75mcg tablet PO SCH (07:12)
[2019-03-20] MEDS: carVEDilol 3.125mg tablet PO SCH ×2 (07:13→20:51)
[2019-03-20] MEDS: lithium carbonate 150mg capsule PO SCH ×3 (07:13→20:54)
[2019-03-20] MEDS: quetiapine 100mg tablet PO SCH ×4 (07:13→20:52)
[2019-03-20] MEDS: PALIPERIDONE 3 MG TAB.ER.24 PO SCH (07:13)
[2019-03-20] MEDS: multivitamins, therapeutics tablet PO SCH (07:13)
[2019-03-20] MEDS: ascorbic acid 500mg tablet PO SCH (07:13)
[2019-03-20] MEDS: LORazepam 0.5 MG tablet PO SCH ×3 (07:13→20:51)
[2019-03-20] MEDS: naproxen sodium 220mg tablet PO SCH ×2 (07:13→20:54)
[2019-03-20] MEDS: calcium carbonate 500mg tablet PO SCH (07:13)
[2019-03-20] MEDS: oxybutynin 5mg tablet PO SCH ×2 (07:13→20:51)
[2019-03-20] MEDS: clotrimazole topical cream 15gm tube TP SCH ×2 (08:24→20:00)
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
--- NOTE | 2019-03-20 10:05 | NUR ---
reassessment: PO 100% average meals meeting needs. LBM 03/19. No nutrition concerns at this time. Will continue to monitor. Rec: 1. continue regular diet 2. bowel care as needed 3. weekly weights Addendum: 03/20/19 at [address] Amended: Links added.
--- NOTE | 2019-03-20 13:03 | NUR ---
Nursing Note: A 0.5 mg lorazepam tablet was found on the floor in the patient's room. Unable to determine where the pill came from. Charge nurse notified and the tablet was wasted in the narcotic waste container.
[2019-03-20 19:45] VITALS: BP 168/103
[2019-03-20] MEDS: atorvastatin 10mg tablet PO SCH (20:53)
[2019-03-20] MEDS: divalproex sodium 250mg tablet PO SCH (20:53)
[2019-03-20] MEDS: diphenhydrAMINE 25mg capsule PO SCH (20:54)
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
[2019-03-20] MEDS: diphenhydrAMINE 25mg capsule PO PRN (23:43)
[2019-03-21] MEDS: levoTHYROXINE 75mcg tablet PO SCH (07:09)
[2019-03-21 07:41] VITALS: BP 148/94
--- NOTE | 2019-03-21 07:59 | NUR ---
DISCHARGE PLANNING Spoke with Ct's Clinician, Agapito (ph# [phone]) who reported he coordinated with [facility] for transportation for today. He requested Ct's medications get called in to [facility]. Passed this information on to discharge specialist, Brady. JOHN Richard
[2019-03-21] MEDS: clotrimazole topical cream 15gm tube TP SCH ×2 (08:00→20:00)
[2019-03-21] MEDS: carVEDilol 3.125mg tablet PO SCH ×2 (08:30→20:31)
[2019-03-21] MEDS: multivitamins, therapeutics tablet PO SCH (08:30)
[2019-03-21] MEDS: lithium carbonate 150mg capsule PO SCH ×3 (08:30→20:35)
[2019-03-21] MEDS: LORazepam 0.5 MG tablet PO SCH ×3 (08:30→20:31)
[2019-03-21] MEDS: oxybutynin 5mg tablet PO SCH ×2 (08:30→20:35)
[2019-03-21] MEDS: PALIPERIDONE 3 MG TAB.ER.24 PO SCH (08:31)
[2019-03-21] MEDS: ascorbic acid 500mg tablet PO SCH (08:31)
[2019-03-21] MEDS: quetiapine 100mg tablet PO SCH ×4 (08:31→20:34)
[2019-03-21] MEDS: naproxen sodium 220mg tablet PO SCH ×2 (08:31→20:35)
[2019-03-21] MEDS: calcium carbonate 500mg tablet PO SCH (08:31)
[2019-03-21] MEDS: divalproex sodium 250mg tablet PO SCH ×2 (08:48→20:32)
[2019-03-21] MEDS: acetaminophen 325mg tablet PO PRN (09:44)
--- NOTE | 2019-03-21 11:02 | NUR ---
DISCHARGE PLANNING Called Ct's Clinician again, Agapito (ph# [phone]), to report that FRANCISCA Rocha, does not want to discharge Ct today and wants to adjust his medications. [place] reported he will cancel transport. Old Testament Professor will give him an update in the next day or two as to how Ct is doing with the medication changes. JOHN Rcihard
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
[2019-03-21 20:11] VITALS: BP 143/92
[2019-03-21] MEDS: atorvastatin 10mg tablet PO SCH (20:33)
[2019-03-21] MEDS: diphenhydrAMINE 25mg capsule PO SCH (20:36)
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
[2019-03-22] MEDS: levoTHYROXINE 75mcg tablet PO SCH (07:19)
[2019-03-22] MEDS: PALIPERIDONE 3 MG TAB.ER.24 PO SCH (07:52)
[2019-03-22] MEDS: lithium carbonate 150mg capsule PO SCH ×3 (07:53→20:32)
[2019-03-22] MEDS: oxybutynin 5mg tablet PO SCH ×2 (07:53→20:34)
[2019-03-22] MEDS: quetiapine 100mg tablet PO SCH ×4 (07:53→20:33)
[2019-03-22] MEDS: ascorbic acid 500mg tablet PO SCH (07:54)
[2019-03-22] MEDS: LORazepam 0.5 MG tablet PO SCH ×3 (07:54→20:33)
[2019-03-22] MEDS: multivitamins, therapeutics tablet PO SCH (07:54)
[2019-03-22] MEDS: calcium carbonate 500mg tablet PO SCH (07:54)
[2019-03-22] MEDS: carVEDilol 3.125mg tablet PO SCH ×2 (07:55→20:33)
[2019-03-22] MEDS: naproxen sodium 220mg tablet PO SCH ×2 (07:55→20:33)
[2019-03-22] MEDS: divalproex sodium 250mg tablet PO SCH ×2 (07:56→20:32)
[2019-03-22 08:00] VITALS: BP 148/94
[2019-03-22] MEDS: clotrimazole topical cream 15gm tube TP SCH ×2 (08:00→20:00)
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
[2019-03-22 20:15] VITALS: BP 136/82
[2019-03-22] MEDS: atorvastatin 10mg tablet PO SCH (20:33)
[2019-03-22] MEDS: diphenhydrAMINE 25mg capsule PO SCH (20:34)
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
[2019-03-23] MEDS: levoTHYROXINE 75mcg tablet PO SCH (06:24)
[2019-03-23 07:32] VITALS: BP 132/83
[2019-03-23] MEDS: multivitamins, therapeutics tablet PO SCH (07:46)
[2019-03-23] MEDS: calcium carbonate 500mg tablet PO SCH (07:48)
[2019-03-23] MEDS: divalproex sodium 250mg tablet PO SCH ×2 (07:48→20:54)
[2019-03-23] MEDS: quetiapine 100mg tablet PO SCH ×4 (07:49→20:54)
[2019-03-23] MEDS: carVEDilol 3.125mg tablet PO SCH ×2 (07:49→20:53)
[2019-03-23] MEDS: lithium carbonate 150mg capsule PO SCH ×2 (07:49→14:21)
[2019-03-23] MEDS: naproxen sodium 220mg tablet PO SCH ×2 (07:49→20:53)
[2019-03-23] MEDS: PALIPERIDONE 3 MG TAB.ER.24 PO SCH (07:49)
[2019-03-23] MEDS: LORazepam 0.5 MG tablet PO SCH ×3 (07:49→20:58)
[2019-03-23] MEDS: ascorbic acid 500mg tablet PO SCH (07:49)
[2019-03-23] MEDS: oxybutynin 5mg tablet PO SCH ×2 (07:49→20:55)
[2019-03-23] MEDS: clotrimazole topical cream 15gm tube TP SCH ×2 (08:17→20:00)
--- NOTE | 2019-03-23 10:40 | NUR ---
DISCHARGE PLANNING Called Ct's Clinician, Florala (ph# [phone]), to provide update on Ct and discuss discharge plan. Left message requesting a call back. JOHN Richard
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
[2019-03-23 20:00] VITALS: BP 155/98
[2019-03-23] MEDS: atorvastatin 10mg tablet PO SCH (20:54)
[2019-03-23] MEDS: diphenhydrAMINE 25mg capsule PO SCH (20:55)
[2019-03-23] MEDS ORDERED: divalproex sod 125mg tablet.DR PO SCH (21:00)
[2019-03-24] MEDS: lithium carbonate 150mg capsule PO SCH ×4 (01:26→20:47)
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
[2019-03-24] MEDS: levoTHYROXINE 75mcg tablet PO SCH (06:58)
[2019-03-24 08:01] VITALS: BP 124/83
[2019-03-24] MEDS: naproxen sodium 220mg tablet PO SCH ×2 (08:06→20:46)
[2019-03-24] MEDS: calcium carbonate 500mg tablet PO SCH (08:06)
[2019-03-24] MEDS: multivitamins, therapeutics tablet PO SCH (08:07)
[2019-03-24] MEDS: quetiapine 100mg tablet PO SCH ×4 (08:07→20:46)
[2019-03-24] MEDS: oxybutynin 5mg tablet PO SCH ×2 (08:07→20:46)
[2019-03-24] MEDS: PALIPERIDONE 3 MG TAB.ER.24 PO SCH (08:07)
[2019-03-24] MEDS: ascorbic acid 500mg tablet PO SCH (08:07)
[2019-03-24] MEDS: carVEDilol 3.125mg tablet PO SCH ×2 (08:08→20:47)
[2019-03-24] MEDS: LORazepam 0.5 MG tablet PO SCH ×3 (08:08→20:47)
[2019-03-24] MEDS: divalproex sodium 250mg tablet PO SCH ×2 (08:09→20:47)
[2019-03-24] MEDS: clotrimazole topical cream 15gm tube TP SCH ×2 (08:09→20:51)
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
--- NOTE | 2019-03-24 15:43 | NUR ---
Progress Note: Legal hold: 5150 Client on voluntary/involuntary status for DTS. Report received from nurse, Charline, with use of SBAR. Why are they here: Pt attempted suicide by overdose on muscle relaxers. Pt went into respiratory failure and had to be intubated, admitted to ICU. Diagnosis/presenting symptoms: Suicidal Ideation/Overdose Assessment What has happened this shift: Patient up at change of shift. He states that he is feeling short of breath, respiratory paged and provided treatment. Patient states that he feels much better. He requests to have his stuffed animal and it is given to him. He states that he slept well last and that he hasnt been sleeping well which contributed to him not feeling well. Patient states that his A/H this morning have decreased about 20%. Patient takes his medications without issue. After breakfast he returns to his room and lays down. He states that he is seeing people messing with the bulbs, and that the zyprexa they administered last night was effective. RN consult with prescriber Enrique, plan is to start patient on GALINDO instead of pills. Patient observed resting comfortably. Patient is pleasant at each interaction. He states that he enjoys listening to music as a coping skill and uses the headphones. He states that prescriber did discuss with him the use of a GALINDO. Medication education is provided. S/I, H/I: denies A/VH: A/H and V/H of people messing with the bulbs Sleep: 2.75hrs NOC and rested during the day ADL's:independent Group attendance: no Were meds taken:yes Any med S/E: no Mental Status Exam Appearance:disheveled, wearing gown Eye contact: direct Behavior: calm, cooperative Speech: soft tone, normal rate/rhythm Mood: reports improved mood Affect: restricted Thought process: linear Thought Content: Cognition: A/O x4 Insight:poor Judgment:poor Interventions PRN's used: none Therapeutic interventions: 1:1 therapeutic assessment, maintained safe therapeutic milieu, provided active listening with positive reinforcement, provided medication administration/education/monitoring as needed; Q15 safety checks. Restraints/seclusion/emergency medication: N/A Justification of Continued Inpatient Treatment: Continued therapeutic support and medication management needed to provide stabilization, prevent decompensation, improve coping mechanisms decreasing risk to patient and re-admittance. Addendum: 03/24/19 at 1545 by Yvonne Lenz RN Documented on wrong patient, please see previous note.
[2019-03-24 19:34] VITALS: BP 139/93
[2019-03-24] MEDS: diphenhydrAMINE 25mg capsule PO SCH (20:46)
[2019-03-24] MEDS: atorvastatin 10mg tablet PO SCH (20:47)
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
[2019-03-25] MEDS: diphenhydrAMINE 25mg capsule PO PRN (03:51)
[2019-03-25] MEDS: levoTHYROXINE 75mcg tablet PO SCH (06:51)
[2019-03-25] MEDS: naproxen sodium 220mg tablet PO SCH ×2 (07:46→20:42)
[2019-03-25] MEDS: PALIPERIDONE 3 MG TAB.ER.24 PO SCH (07:46)
[2019-03-25] MEDS: quetiapine 100mg tablet PO SCH ×4 (07:46→20:42)
[2019-03-25] MEDS: lithium carbonate 150mg capsule PO SCH ×3 (07:47→20:43)
[2019-03-25] MEDS: ascorbic acid 500mg tablet PO SCH (07:47)
[2019-03-25] MEDS: carVEDilol 3.125mg tablet PO SCH ×2 (07:47→20:43)
[2019-03-25] MEDS: LORazepam 0.5 MG tablet PO SCH ×3 (07:47→20:43)
[2019-03-25] MEDS: divalproex sodium 250mg tablet PO SCH ×2 (07:47→20:43)
[2019-03-25] MEDS: calcium carbonate 500mg tablet PO SCH (07:47)
[2019-03-25] MEDS: multivitamins, therapeutics tablet PO SCH (07:47)
[2019-03-25] MEDS: oxybutynin 5mg tablet PO SCH ×2 (07:48→20:42)
[2019-03-25] MEDS: clotrimazole topical cream 15gm tube TP SCH ×2 (08:00→20:00)
[2019-03-25 08:04] VITALS: BP 143/92
[2019-03-25] MEDS: acetaminophen 325mg tablet PO PRN (14:45)
[2019-03-25] MEDS: LORazepam 1 MG tablet PO PRN (16:09)
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
[2019-03-25 19:33] VITALS: BP 152/99
[2019-03-25] MEDS: diphenhydrAMINE 25mg capsule PO SCH (20:42)
[2019-03-25] MEDS: atorvastatin 10mg tablet PO SCH (20:43)
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
[2019-03-26] MEDS: acetaminophen 325mg tablet PO PRN ×3 (01:43→20:54)
[2019-03-26] MEDS: levoTHYROXINE 75mcg tablet PO SCH (07:16)
[2019-03-26 07:58] VITALS: BP 123/81
[2019-03-26] MEDS: ascorbic acid 500mg tablet PO SCH (08:13)
[2019-03-26] MEDS: carVEDilol 3.125mg tablet PO SCH ×2 (08:13→20:49)
[2019-03-26] MEDS: lithium carbonate 150mg capsule PO SCH ×3 (08:14→20:50)
[2019-03-26] MEDS: PALIPERIDONE 3 MG TAB.ER.24 PO SCH (08:15)
[2019-03-26] MEDS: oxybutynin 5mg tablet PO SCH ×2 (08:15→20:49)
[2019-03-26] MEDS: naproxen sodium 220mg tablet PO SCH ×2 (08:15→20:48)
[2019-03-26] MEDS: divalproex sodium 250mg tablet PO SCH ×2 (08:15→20:49)
[2019-03-26] MEDS: calcium carbonate 500mg tablet PO SCH (08:15)
[2019-03-26] MEDS: multivitamins, therapeutics tablet PO SCH (08:15)
[2019-03-26] MEDS: clotrimazole topical cream 15gm tube TP SCH ×2 (08:16→20:57)
[2019-03-26] MEDS: quetiapine 100mg tablet PO SCH ×4 (08:16→20:49)
[2019-03-26] MEDS: LORazepam 0.5 MG tablet PO SCH ×3 (08:16→20:49)
[2019-03-26] MEDS: mag hydrox/Alum hydrox/simeth 30ml oral suspension PO PRN (12:45)
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
[2019-03-26 19:29] VITALS: BP 132/85
[2019-03-26] MEDS: diphenhydrAMINE 25mg capsule PO SCH (20:48)
[2019-03-26] MEDS: atorvastatin 10mg tablet PO SCH (20:48)
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
[2019-03-27] MEDS: levoTHYROXINE 75mcg tablet PO SCH (07:16)
[2019-03-27 08:00] VITALS: BP 128/79
[2019-03-27] MEDS: naproxen sodium 220mg tablet PO SCH ×2 (08:14→20:36)
[2019-03-27] MEDS: PALIPERIDONE 3 MG TAB.ER.24 PO SCH (08:14)
[2019-03-27] MEDS: divalproex sodium 250mg tablet PO SCH ×2 (08:14→20:39)
[2019-03-27] MEDS: carVEDilol 3.125mg tablet PO SCH ×2 (08:15→20:37)
[2019-03-27] MEDS: ascorbic acid 500mg tablet PO SCH (08:15)
[2019-03-27] MEDS: calcium carbonate 500mg tablet PO SCH (08:15)
[2019-03-27] MEDS: multivitamins, therapeutics tablet PO SCH (08:15)
[2019-03-27] MEDS: quetiapine 100mg tablet PO SCH ×4 (08:15→20:39)
[2019-03-27] MEDS: lithium carbonate 150mg capsule PO SCH ×3 (08:16→20:40)
[2019-03-27] MEDS: LORazepam 0.5 MG tablet PO SCH ×3 (08:16→20:37)
[2019-03-27] MEDS: oxybutynin 5mg tablet PO SCH ×2 (08:16→20:37)
--- NOTE | 2019-03-27 10:02 | NUR ---
reassessment: PO 75-100% average meals meeting needs. LBM 03/24. No nutrition concerns at this time. Will continue to monitor. Rec: 1. continue regular diet 2. bowel care as needed 3. weekly weights Addendum: 03/27/19 at [address] Amended: Links added.
[2019-03-27] MEDS: clotrimazole topical cream 15gm tube TP SCH ×2 (11:00→20:00)
[2019-03-27] MEDS: LORazepam 1 MG tablet PO PRN (11:39)
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
[2019-03-27 19:44] VITALS: BP 123/91
[2019-03-27] MEDS: atorvastatin 10mg tablet PO SCH (20:37)
[2019-03-27] MEDS: diphenhydrAMINE 25mg capsule PO SCH (20:38)
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
[2019-03-27] MEDS: diphenhydrAMINE 25mg capsule PO PRN (23:30)
[2019-03-28] MEDS: LORazepam 1 MG tablet PO PRN ×2 (01:26→20:50)
[2019-03-28] MEDS: levoTHYROXINE 75mcg tablet PO SCH (07:36)
--- NOTE | 2019-03-28 07:41 | NUR ---
DISCHARGE PLANNING Called Ct's Clinician, [place] (ph# [phone]), to provide update on Ct and discuss discharge plan. Left message requesting a call back. JOHN Richard
[2019-03-28 08:00] VITALS: BP 124/83
[2019-03-28] MEDS: clotrimazole topical cream 15gm tube TP SCH ×2 (08:00→20:00)
[2019-03-28] MEDS: divalproex sodium 250mg tablet PO SCH ×2 (08:28→20:36)
[2019-03-28] MEDS: ascorbic acid 500mg tablet PO SCH (08:28)
[2019-03-28] MEDS: naproxen sodium 220mg tablet PO SCH ×2 (08:28→20:35)
[2019-03-28] MEDS: lithium carbonate 150mg capsule PO SCH ×3 (08:28→20:35)
[2019-03-28] MEDS: carVEDilol 3.125mg tablet PO SCH ×2 (08:28→20:36)
[2019-03-28] MEDS: quetiapine 100mg tablet PO SCH ×4 (08:29→20:34)
[2019-03-28] MEDS: PALIPERIDONE 3 MG TAB.ER.24 PO SCH (08:29)
[2019-03-28] MEDS: multivitamins, therapeutics tablet PO SCH (08:29)
[2019-03-28] MEDS: calcium carbonate 500mg tablet PO SCH (08:29)
[2019-03-28] MEDS: oxybutynin 5mg tablet PO SCH ×2 (08:29→20:36)
[2019-03-28] MEDS: LORazepam 0.5 MG tablet PO SCH ×3 (09:32→20:51)
--- NOTE | 2019-03-28 13:33 | NUR ---
DISCHARGE PLANNING [facility] called to arrange for transport. Ct will be picked up at 11:30 tomorrow by [facility] and will be transported to [facility] to meet with his case fitter, Agapito. Agapito will then assist Ct with transitioning to his new half-way. They requested Ct's medications get called in to [facility] (ph# [phone]). JOHN Richard
[2019-03-28] MEDS ORDERED: MULT-1179 PO (14:09)
[2019-03-28] MEDS ORDERED: CLON2TAB PO (14:09)
[2019-03-28] MEDS ORDERED: OXYB5TAB16 PO (14:09)
[2019-03-28] MEDS ORDERED: ATI1T PO (14:09)
[2019-03-28] MEDS ORDERED: CLON-527 PO (14:09)
[2019-03-28] MEDS ORDERED: DIPH-423 PO ×2 (14:09)
[2019-03-28] MEDS ORDERED: DIVA250T4 PO ×2 (14:09)
[2019-03-28] MEDS ORDERED: COR3.125T PO (14:09)
[2019-03-28] MEDS ORDERED: VITC500T PO (14:09)
[2019-03-28] MEDS ORDERED: PALI3TAB5 PO (14:09)
[2019-03-28] MEDS ORDERED: LITH150C8 PO ×2 (14:09)
[2019-03-28] MEDS ORDERED: LEVO75TA7 PO (14:09)
[2019-03-28] MEDS ORDERED: CLOT30CR TP (14:09)
[2019-03-28] MEDS ORDERED: ATOR10TA PO (14:09)
[2019-03-28] MEDS ORDERED: QUET100T33 PO ×2 (14:09)
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
[2019-03-28] MEDS: acetaminophen 325mg tablet PO PRN (17:51)
[2019-03-28 20:00] VITALS: BP 132/73
[2019-03-28] MEDS: atorvastatin 10mg tablet PO SCH (20:33)
[2019-03-28] MEDS: diphenhydrAMINE 25mg capsule PO SCH (20:37)
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
[2019-03-29] MEDS: diphenhydrAMINE 25mg capsule PO PRN (00:02)
[2019-03-29 07:08] LABS: BASOPHILS % (AUTO) 0.5 % (0-1); EOSINOPHILS # (AUTO) 0.6 X10'3 (0-0.9); EOSINOPHILS % (AUTO) 10.6 % (0-6); HEMATOCRIT 41.6 % (42.0-52.0); HEMOGLOBIN 14.4 g/dl (14.0-17.9); LYMPHOCYTES # (AUTO) 1.2 X10'3 (1.1-4.8); LYMPHOCYTES % (AUTO) 19.6 % (21-51); MEAN CORPUSCULAR HEMOGLOBIN 30.4 PG (27.0-31.0); MEAN CORPUSCULAR HGB CONC 34.5 g/dL (33.0-36.5); MEAN CORPUSCULAR VOLUME 88.2 FL (78-98); MEAN PLATELET VOLUME 8.3 FL (7.4-10.4); MONOCYTES # (AUTO) 0.6 X10'3 (0-0.9); MONOCYTES % (AUTO) 9.5 % (2-12); NEUTROPHILS # (AUTO) 3.6 X10'3 (1.8-7.7); NEUTROPHILS % (AUTO) 59.8 % (42-75); PLATELET COUNT 186 X10'3 (140-440); RED BLOOD COUNT 4.72 X10'6 (4.70-6.10); RED CELL DISTRIBUTION WIDTH 13.9 % (11.5-14.5)
[2019-03-29] MEDS: levoTHYROXINE 75mcg tablet PO SCH (07:10)
[2019-03-29 07:33] VITALS: BP 152/91
[2019-03-29 07:50] LABS: CHOL/HDL RATIO 2.7 (0.00-4.99); CHOLESTEROL 98 MG/DL (0-200); HDL CHOLESTEROL 36 MG/DL (35-60); LDL CHOLESTEROL 52 MG/DL (50-100); TRIGLYCERIDES 102 MG/DL (20-135)
[2019-03-29 07:51] LABS: VALPROATE 69 UG/ML (50-100)
[2019-03-29] MEDS: clotrimazole topical cream 15gm tube TP SCH (08:00)
[2019-03-29] MEDS: naproxen sodium 220mg tablet PO SCH (08:00)
[2019-03-29] MEDS: lithium carbonate 150mg capsule PO SCH (08:00)
[2019-03-29] MEDS: LORazepam 0.5 MG tablet PO SCH (08:25)
[2019-03-29] MEDS: carVEDilol 3.125mg tablet PO SCH (08:25)
[2019-03-29] MEDS: divalproex sodium 250mg tablet PO SCH (08:25)
[2019-03-29] MEDS: PALIPERIDONE 3 MG TAB.ER.24 PO SCH (08:26)
[2019-03-29] MEDS: calcium carbonate 500mg tablet PO SCH (08:26)
[2019-03-29] MEDS: ascorbic acid 500mg tablet PO SCH (08:26)
[2019-03-29] MEDS: oxybutynin 5mg tablet PO SCH (08:26)
[2019-03-29] MEDS: quetiapine 100mg tablet PO SCH (08:26)
[2019-03-29] MEDS: multivitamins, therapeutics tablet PO SCH (08:27)
--- NOTE | 2019-03-29 09:04 | NUR ---
DISCHARGE PLANNING Called Jeny Sadler to schedule Ct another follow up appt. They will call back with appt time. JOHN Richard
[2019-03-29] MEDS ORDERED: LITH150C8 PO (09:47)
--- NOTE | 2019-03-29 12:15 | NUR ---
DISCHARGE NOTE The patient was discharged today at 1215. He left with all belongings and instructions. His meds were called in to [facility] in [place]. 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 The patient was excited and happy to be going to his new home and thanked the staff when he left.
== END 2019-03-29 12:15 | disposition short-term general hospital (02) | DRG 750 ==
LOC: UNDOADMIN 15:28 → ADULT MH 15:28 → UNDODISIN 23:19 → ADULT MH 02-23 14:43
PROVIDERS: ADMIT Psychiatry & Neurology Psychiatry; ATTEND Psychiatry & Neurology Psychiatry
DX: F25.0 Schizoaffective disorder, bipolar type (principal); E11.9 Type 2 diabetes mellitus without complications; E03.9 Hypothyroidism, unspecified; F41.9 Anxiety disorder, unspecified; I10 Essential (primary) hypertension; E78.5 Hyperlipidemia, unspecified; F32.9 Major depressive disorder, single episode, unspecified; F17.200 Nicotine dependence, unspecified, uncomplicated; Z79.899 Other long term (current) drug therapy; Z91.14 Patient's other noncompliance with medication regimen; Z28.21 Immunization not carried out because of patient refusal
CPT/HCPCS: 36415; 80053; 80061; 80164; 80178; 84443; 85025; 87081; 99285; Q0163; Q2037